=== PATIENT | female | born 1980 | race Caucasian/White ===

== ENCOUNTER 2021-05-03 08:20 | Inpatient (IN) ==
[2021-05-03] MEDS ORDERED: VANCOMYCIN 1,000 MG in 0.9 % SODIUM CHLORIDE 250 ML IV ONE (09:07)
[2021-05-03] MEDS ORDERED: PIPERACILLIN SODIUM/TAZOBACTAM 3.375 GM in DEXTROSE 5% IN WATER 50 ML IV ONE (09:09)
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
[2021-05-03 10:21] LABS: Basophils # (Auto) 0.05 K/mcL (0.00-0.20); Basophils % (Auto) 0.9 % (0.0-2.0); Eosinophils # (Auto) 0.17 K/mcL (0.00-0.70); Hematocrit 38.4 % (36.0-48.0); Hemoglobin 12.6 g/dL (12.0-15.0); Lymphocytes # (Auto) 1.99 K/mcL (1.50-4.80); Lymphocytes % (Auto) 35.5 % (15.0-49.0); Mean Cell Volume 91.9 fL (80.0-100.0); Mean Corpuscular HGB Conc 32.8 g/dL (31.0-36.0); Mean Platelet Volume 10.2 fL (7.4-10.4); Monocytes % (Auto) 7.1 % (1.0-12.0); Neutrophils % (Auto) 53.5 % (38.0-78.0); Platelet Count 170 K/mcL (140-440); RBC 4.18 M/mcL (4.00-5.20); Red Cell Distribution Width 14.3 % (11.5-14.5); WBC 5.6 K/mcL (4.5-11.0)
[2021-05-03 10:23] LABS: ALT/SGPT 105 U/L (<40); AST/SGOT 103 U/L (<32); Albumin 3.6 gm/dL (3.2-5.2); Albumin/Globulin Ratio 0.8 (1.0-2.3); Alkaline Phosphatase 131 U/L (39-117); Bilirubin,Total 0.6 mg/dL (0.1-1.0); Blood Urea Nitrogen 5 mg/dL (6-20); Calcium 9.1 mg/dL (8.6-10.4); Carbon Dioxide 24 mmol/L (22-30); Chloride 96 mmol/L (96-108); Globulin 4.3 gm/dL (2.2-3.7); Glomerular Filtration Rate 113; Glucose 324 mg/dL (70-105)
[2021-05-03] MEDS ORDERED: VANCOMYCIN 1,500 MG in 0.9 % SODIUM CHLORIDE 500 ML IV ONE (11:00)
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
[2021-05-03] MEDS ORDERED: VANCOMYCIN 1,000 MG in 0.9 % SODIUM CHLORIDE 250 ML IV SCH (13:30)
[2021-05-03] MEDS ORDERED: VANCOMYCIN PER PHARMACY IV SCH (13:45)
[2021-05-03] MEDS: 0.9 % SODIUM CHLORIDE 1,000 ML IV SCH (14:03)
[2021-05-03] MEDS: HYDROmorphone 1 MG/ML SYRINGE IV PRN ×2 (14:26→18:20)
[2021-05-03 15:34] LABS: Hemoglobin A1C 10.3 % Hgb (4.0-6.0)
[2021-05-03] MEDS: INSULIN LISPRO 1 UNIT/0.01 ML UNIT SQ SCH ×2 (19:55→23:36)
[2021-05-03] MEDS: LORATADINE 10 MG TABLET PO SCH (21:44)
[2021-05-03] MEDS: HYDROCHLOROTHIAZIDE 12.5 MG CAPSULE PO SCH (21:44)
[2021-05-03] MEDS: OMEPRAZOLE 20 MG CAPSULE PO SCH (21:44)
[2021-05-03] MEDS: VANCOMYCIN 1,500 MG in 0.9 % SODIUM CHLORIDE 500 ML IV SCH (21:59)
[2021-05-04] MEDS: HYDROmorphone 1 MG/ML SYRINGE IV PRN ×4 (00:24→20:44)
[2021-05-04] MEDS: INSULIN LISPRO 1 UNIT/0.01 ML UNIT SQ SCH ×3 (05:31→18:08)
[2021-05-04 06:47] LABS: Basophils # (Auto) 0.05 K/mcL (0.00-0.20); Basophils % (Auto) 0.9 % (0.0-2.0); Eosinophils # (Auto) 0.18 K/mcL (0.00-0.70); Eosinophils % (Auto) 3.3 % (0.0-7.0); Hematocrit 38.1 % (36.0-48.0); Hemoglobin 11.9 g/dL (12.0-15.0); Lymphocytes % (Auto) 27.6 % (15.0-49.0); Mean Cell Volume 93.8 fL (80.0-100.0); Mean Corpuscular HGB Conc 31.2 g/dL (31.0-36.0); Monocytes # (Auto) 0.42 K/mcL (0.10-0.90); Monocytes % (Auto) 7.7 % (1.0-12.0); Neutrophils % (Auto) 60.5 % (38.0-78.0); Platelet Count 155 K/mcL (140-440); RBC 4.06 M/mcL (4.00-5.20); Red Cell Distribution Width 14.6 % (11.5-14.5); WBC 5.4 K/mcL (4.5-11.0)
[2021-05-04] MEDS: VANCOMYCIN 1,500 MG in 0.9 % SODIUM CHLORIDE 500 ML IV SCH ×2 (09:36→20:29)
[2021-05-04] MEDS: 0.9 % SODIUM CHLORIDE 1,000 ML IV SCH ×2 (09:41→15:42)
[2021-05-04] MEDS ORDERED: MAGNESIUM SULFATE 4 GM/100 ML BAG IV ONE (14:40)
[2021-05-04] MEDS ORDERED: metroNIDAZOLE 500 MG/100 ML BAG IV SCH (14:45)
--- NOTE | 2021-05-04 14:59 | General Surgery Progress Note ---
SUBJECTIVE Subjective Patient information: Note initiated : 05/04/21 at 2:53 pm Service Date, if different from initiated Date: [] Patient: Jenn Walsh a 40 y/o F admitted on 05/03/21 for Spider bite, left breast. Chief Complaint: [] Principal diagnosis: Left breast abscess Interval history: Patient has decreased induration of the breast. The area of cellulitis is about the same. There is some drainage which has been cultured. She will be continued on Zosyn and vancomycin until culture results have returned. Her blood sugars are between 245 and 325. She will be started on basal insulin twice daily. Constitutional Vitals: Vital Signs Temp Pulse Resp BP Pulse Ox 97.6 F 94 H 18 124/77 92 05/04/21 11:41 05/04/21 11:41 05/04/21 11:41 05/04/21 11:41 05/04/21 11:41 Period Temp Pulse Resp BP Sys/De Jesus Pulse Ox Last 24 Hr 97 F-98.1 F 88-96 18-18 116-141/68-82 91-94 Intake and Output 05/04/21 05/04/21 05/04/21 05:59 13:59 21:59 Intake Total 1300 1000 Output Total 400 600 Balance 900 400 Intake & Output: Intake & Output 05/04/21 05/04/21 05/04/21 05:59 13:59 21:59 Intake Total 1300 1000 Output Total 400 600 Balance 900 400 Intake: IV 500 500 Vancomycin 1,500 mg In Sodium 500 500 Chloride 0.9% 500 ml @ 333.3 mls/hr IV Q12H [facility] Rx#: [id number] Oral 800 500 Output: Void Amount 400 600 Other: Meal Dinner Percent of Meal Consumed 100% Urine Appearance Cloudy Urine Color Bright Yellow ENT ENT exam: Present mucous membranes moist, normal exam and normal oropharynx Neck Neck exam: Present full ROM and normal inspection; Absent tenderness Respiratory Respiratory exam: Present normal respiratory exam and CTAB; Absent rales, rhonchi and wheezes Cardiovascular Cardiovascular exam: Present normal rate and rhythm, RRR, +S1 and +S2; Absent gallop and JVD GI/Abdominal GI/Abdominal exam: Present normal bowel sounds and soft; Absent distended and mass Extremities Exam Extremities exam: Present full ROM, normal inspection and neurovascular intact; Absent pedal edema Neurological Exam Neurological exam: Present alert, CN II-XII intact, normal gait and oriented X3 Psychiatric Psychiatric exam: Present normal affect; Absent anxious Skin Additional comments: Drainage from the superficial abscess left breast; cellulitis is about the same. A/P Assessment and plan (1) Diabetes mellitus: Status: Acute (2) Nonpuerperal abscess of left breast: Status: Acute Narrative A/P Narrative: Continue antibiotic coverage Add basal insulin twice daily We will check culture and sensitivity in 24 to 48 hours Time Spent With Patient Time: Total time spent is greater than 50% in coordination of care (as documented) at patient's floor/unit and/or counseling patient:
[2021-05-04] MEDS: PIPERACILLIN SODIUM/TAZOBACTAM 3.375 GM in DEXTROSE 5% IN WATER 50 ML IV SCH ×3 (15:56→23:53)
[2021-05-04] MEDS: HYDROCHLOROTHIAZIDE 12.5 MG CAPSULE PO SCH (20:31)
[2021-05-04] MEDS: LORATADINE 10 MG TABLET PO SCH (20:31)
[2021-05-04] MEDS: OMEPRAZOLE 20 MG CAPSULE PO SCH (20:31)
[2021-05-04] MEDS: INSULIN GLARGINE, HUMAN 1 UNIT/0.01 ML SQ SCH (20:32)
[2021-05-05] MEDS: INSULIN LISPRO 1 UNIT/0.01 ML UNIT SQ SCH ×5 (00:12→23:34)
[2021-05-05] MEDS: HYDROmorphone 1 MG/ML SYRINGE IV PRN ×5 (03:26→22:40)
[2021-05-05] MEDS: 0.9 % SODIUM CHLORIDE 1,000 ML IV SCH (06:30)
[2021-05-05] MEDS: PIPERACILLIN SODIUM/TAZOBACTAM 3.375 GM in DEXTROSE 5% IN WATER 50 ML IV SCH ×3 (06:38→17:42)
[2021-05-05 07:22] LABS: Basophils # (Auto) 0.07 K/mcL (0.00-0.20); Basophils % (Auto) 1.3 % (0.0-2.0); Eosinophils # (Auto) 0.19 K/mcL (0.00-0.70); Eosinophils % (Auto) 3.5 % (0.0-7.0); Hematocrit 38.9 % (36.0-48.0); Hemoglobin 11.9 g/dL (12.0-15.0); Lymphocytes # (Auto) 1.87 K/mcL (1.50-4.80); Lymphocytes % (Auto) 34.9 % (15.0-49.0); Mean Cell Volume 95.8 fL (80.0-100.0); Mean Corpuscular HGB Conc 30.6 g/dL (31.0-36.0); Mean Platelet Volume 10.3 fL (7.4-10.4); Monocytes # (Auto) 0.37 K/mcL (0.10-0.90); Monocytes % (Auto) 6.9 % (1.0-12.0); Neutrophils % (Auto) 53.4 % (38.0-78.0); Platelet Count 141 K/mcL (140-440); RBC 4.06 M/mcL (4.00-5.20); Red Cell Distribution Width 14.6 % (11.5-14.5); WBC 5.4 K/mcL (4.5-11.0)
[2021-05-05] MEDS: VANCOMYCIN 1,500 MG in 0.9 % SODIUM CHLORIDE 500 ML IV SCH ×2 (08:29→21:16)
[2021-05-05] MEDS: INSULIN GLARGINE, HUMAN 1 UNIT/0.01 ML SQ SCH ×2 (08:29→21:15)
--- NOTE | 2021-05-05 13:52 | General Surgery Progress Note ---
SUBJECTIVE Subjective Patient information: Note initiated : 05/05/21 at 1:44 pm Service Date, if different from initiated Date: [] Patient: Jenn Walsh a 40 y/o F admitted on 05/03/21 for Spider bite, left breast. Chief Complaint: [] Principal diagnosis: Left breast abscess Interval history: Patient states that her discomfort is improved. The cellulitis and central necrotic area is much improved. White blood count is 5.4 and hemoglobin is 11.9. Cultures are still said to be negative which is not explainable in view of the major amount of cellulitis and purulent drainage that she has. Serum glucose is 217- 267. Will increase Lantus to 20 units twice daily and continue sliding scale coverage. Constitutional Vitals: Vital Signs Temp Pulse Resp BP Pulse Ox 96.2 F L 89 20 126/72 93 05/05/21 08:00 05/05/21 08:00 05/05/21 08:00 05/05/21 08:00 05/05/21 08:00 Period Temp Pulse Resp BP Sys/De Jesus Pulse Ox Last 24 Hr 96.2 F-98.3 F 89-90 16-20 113-145/64-83 91-94 Intake and Output 05/04/21 05/05/21 05/05/21 21:59 05:59 13:59 Intake Total 1380 1575 600 Output Total 675 Balance 705 1575 600 Weight 359 lb Intake & Output: Intake & Output 05/04/21 05/05/21 05/05/21 21:59 05:59 13:59 Intake Total 1380 1575 600 Output Total 675 Balance 705 1575 600 Weight 359 lb Intake: IV 100 550 600 Zosyn 3.375 gm In Dextrose 5% 100 50 100 in Water 50 ml @ 100 mls/hr IV Q6H [facility] Rx#:[id number] Vancomycin 1,500 mg In Sodium 500 500 Chloride 0.9% 500 ml @ 333.3 mls/hr IV Q12H [facility] Rx#: [id number] Oral 1280 1025 Output: Void Amount 675 Other: Meal Dinner Percent of Meal Consumed 100% Feeding Ability Independent Neck Neck exam: Present full ROM and normal inspection; Absent tenderness Respiratory Respiratory exam: Present normal respiratory exam and CTAB; Absent rales, rhonchi and wheezes Cardiovascular Cardiovascular exam: Present normal rate and rhythm, RRR, +S1 and +S2; Absent gallop and JVD GI/Abdominal GI/Abdominal exam: Present normal bowel sounds and soft; Absent distended and mass Extremities Exam Extremities exam: Present full ROM, normal inspection and neurovascular intact; Absent pedal edema Neurological Exam Neurological exam: Present alert, CN II-XII intact, normal gait and oriented X3 Psychiatric Psychiatric exam: Present normal affect; Absent anxious Skin Additional comments: Drainage from the superficial abscess left breast; cellulitis is significantly improved and the central necrotic area is improved.. A/P Assessment and plan (1) Diabetes mellitus: Status: Acute (2) Nonpuerperal abscess of left breast: Status: Acute Narrative A/P Narrative: Continue antibiotic coverage Increase basal insulin twice daily Time Spent With Patient Time: Total time spent is greater than 50% in coordination of care (as documented) at patient's floor/unit and/or counseling patient:
[2021-05-05] MEDS: OMEPRAZOLE 20 MG CAPSULE PO SCH (21:14)
[2021-05-05] MEDS: LORATADINE 10 MG TABLET PO SCH (21:15)
[2021-05-05] MEDS: HYDROCHLOROTHIAZIDE 12.5 MG CAPSULE PO SCH (21:15)
[2021-05-06] MEDS: PIPERACILLIN SODIUM/TAZOBACTAM 3.375 GM in DEXTROSE 5% IN WATER 50 ML IV SCH ×4 (00:59→17:38)
[2021-05-06] MEDS: HYDROmorphone 1 MG/ML SYRINGE IV PRN ×6 (01:40→21:19)
[2021-05-06] MEDS: INSULIN LISPRO 1 UNIT/0.01 ML UNIT SQ SCH ×3 (06:35→17:38)
[2021-05-06 07:23] LABS: Basophils # (Auto) 0.05 K/mcL (0.00-0.20); Basophils % (Auto) 0.9 % (0.0-2.0); Eosinophils # (Auto) 0.22 K/mcL (0.00-0.70); Eosinophils % (Auto) 3.9 % (0.0-7.0); Hematocrit 39.2 % (36.0-48.0); Hemoglobin 12.1 g/dL (12.0-15.0); Lymphocytes # (Auto) 2.01 K/mcL (1.50-4.80); Lymphocytes % (Auto) 35.4 % (15.0-49.0); Mean Cell Volume 95.6 fL (80.0-100.0); Mean Corpuscular HGB Conc 30.9 g/dL (31.0-36.0); Mean Platelet Volume 9.9 fL (7.4-10.4); Monocytes # (Auto) 0.35 K/mcL (0.10-0.90); Monocytes % (Auto) 6.2 % (1.0-12.0); Neutrophils % (Auto) 53.6 % (38.0-78.0); Platelet Count 176 K/mcL (140-440); Red Cell Distribution Width 14.6 % (11.5-14.5); WBC 5.7 K/mcL (4.5-11.0)
[2021-05-06 08:06] LABS: ALT/SGPT 109 U/L (<40); AST/SGOT 127 U/L (<32); Albumin 3.1 gm/dL (3.2-5.2); Albumin/Globulin Ratio 0.7 (1.0-2.3); Alkaline Phosphatase 115 U/L (39-117); Bilirubin,Direct 0.4 mg/dL (<0.3); Bilirubin,Total 0.9 mg/dL (0.1-1.0); Blood Urea Nitrogen 6 mg/dL (6-20); Calcium 8.9 mg/dL (8.6-10.4); Carbon Dioxide 25 mmol/L (22-30); Chloride 99 mmol/L (96-108); Globulin 4.4 gm/dL (2.2-3.7); Glomerular Filtration Rate 119; Glucose 172 mg/dL (70-105); Lactate Dehydrogenase 282 U/L (135-225); Phosphorous 4.4 mg/dL (2.5-4.5); Triglycerides 111 mg/dL (<150); Uric Acid 2.3 mg/dL (2.5-8.0)
[2021-05-06] MEDS: INSULIN GLARGINE, HUMAN 1 UNIT/0.01 ML SQ SCH ×2 (09:21→21:22)
[2021-05-06] MEDS: VANCOMYCIN 1,500 MG in 0.9 % SODIUM CHLORIDE 500 ML IV SCH (11:29)
[2021-05-06] MEDS: VANCOMYCIN 2,000 MG in 0.9 % SODIUM CHLORIDE 500 ML IV SCH ×2 (12:27→21:17)
[2021-05-06] MEDS: 0.9 % SODIUM CHLORIDE 10 ML SYRINGE IV SCH ×2 (13:04→21:18)
--- NOTE | 2021-05-06 18:26 | General Surgery Progress Note ---
SUBJECTIVE Subjective Patient information: Note initiated : 05/06/21 at 6:22 pm Service Date, if different from initiated Date: [] Patient: Jenn Walsh a 40 y/o F admitted on 05/05/21 for Spider bite, left breast. Chief Complaint: [] Principal diagnosis: Left breast abscess Interval history: Patient continues to feel better. She has significant decrease in drainage, erythema, induration of the left breast wound. Her blood sugars are still elevated but are gradually improving. She will receive diabetic teaching probably tomorrow. Constitutional Vitals: Vital Signs Temp Pulse Resp BP Pulse Ox 97.8 F 82 20 132/68 91 05/06/21 16:00 05/06/21 16:00 05/06/21 16:00 05/06/21 16:00 05/06/21 16:00 Period Temp Pulse Resp BP Sys/De Jesus Pulse Ox Last 24 Hr 97.0 F-98.8 F 82-89 20-20 117-132/68-77 90-94 Intake and Output 05/06/21 05/06/21 05/06/21 05:59 13:59 21:59 Intake Total 1150 1020 1100 Output Total 350 Balance 2128 621 8888 Intake & Output: Intake & Output 05/06/21 05/06/21 05/06/21 05:59 13:59 21:59 Intake Total 1150 1020 1100 Output Total 350 Balance 2999 530 1773 Intake: IV 550 100 550 Zosyn 3.375 gm In Dextrose 5% 50 100 50 in Water 50 ml @ 100 mls/hr IV Q6H [facility] Rx#:[id number] Vancomycin 2,000 mg In Sodium 500 500 Chloride 0.9% 500 ml @ 250 mls/ hr IV Q12H [facility] Rx#:[id number] Oral 600 920 550 Output: Void Amount 350 Other: Meal Breakfast Lunch Percent of Meal Consumed 100% 100% Urine Appearance Clear Urine Color Bright Yellow Urine Odor Normal Neck Neck exam: Present full ROM and normal inspection; Absent tenderness Respiratory Respiratory exam: Present normal respiratory exam and CTAB; Absent rales, rhonchi and wheezes Cardiovascular Cardiovascular exam: Present normal rate and rhythm, RRR, +S1 and +S2; Absent gallop and JVD GI/Abdominal GI/Abdominal exam: Present normal bowel sounds and soft; Absent distended and ma ss Extremities Exam Extremities exam: Present full ROM, normal inspection and neurovascular intact; Absent pedal edema Skin Additional comments: Drainage from the superficial abscess left breast; cellulitis is significantly improved and the central necrotic area is improved.. A/P Assessment and plan (1) Diabetes mellitus: Status: Acute (2) Nonpuerperal abscess of left breast: Status: Acute Narrative A/P Narrative: Continue antibiotics Lantus 30 units twice daily Time Spent With Patient Time: Total time spent is greater than 50% in coordination of care (as documented) at patient's floor/unit and/or counseling patient:
[2021-05-06] MEDS: OMEPRAZOLE 20 MG CAPSULE PO SCH (21:17)
[2021-05-06] MEDS: LORATADINE 10 MG TABLET PO SCH (21:17)
[2021-05-06] MEDS: HYDROCHLOROTHIAZIDE 12.5 MG CAPSULE PO SCH (21:17)
[2021-05-07] MEDS: INSULIN LISPRO 1 UNIT/0.01 ML UNIT SQ SCH ×4 (00:02→17:56)
[2021-05-07] MEDS: HYDROmorphone 1 MG/ML SYRINGE IV PRN ×7 (00:14→21:50)
[2021-05-07] MEDS: PIPERACILLIN SODIUM/TAZOBACTAM 3.375 GM in DEXTROSE 5% IN WATER 50 ML IV SCH ×4 (00:26→17:50)
[2021-05-07] MEDS: 0.9 % SODIUM CHLORIDE 10 ML SYRINGE IV SCH ×3 (05:56→22:09)
[2021-05-07 07:06] LABS: Basophils # (Auto) 0.07 K/mcL (0.00-0.20); Basophils % (Auto) 1.1 % (0.0-2.0); Eosinophils # (Auto) 0.21 K/mcL (0.00-0.70); Eosinophils % (Auto) 3.3 % (0.0-7.0); Hematocrit 38.6 % (36.0-48.0); Hemoglobin 12.2 g/dL (12.0-15.0); Lymphocytes # (Auto) 2.06 K/mcL (1.50-4.80); Lymphocytes % (Auto) 32.1 % (15.0-49.0); Mean Cell Volume 94.6 fL (80.0-100.0); Mean Corpuscular HGB Conc 31.6 g/dL (31.0-36.0); Mean Platelet Volume 10.1 fL (7.4-10.4); Monocytes # (Auto) 0.48 K/mcL (0.10-0.90); Monocytes % (Auto) 7.5 % (1.0-12.0); Platelet Count 170 K/mcL (140-440); RBC 4.08 M/mcL (4.00-5.20); Red Cell Distribution Width 14.4 % (11.5-14.5); WBC 6.4 K/mcL (4.5-11.0)
[2021-05-07] MEDS: INSULIN GLARGINE, HUMAN 1 UNIT/0.01 ML SQ SCH ×2 (08:44→21:49)
[2021-05-07] MEDS: VANCOMYCIN 2,000 MG in 0.9 % SODIUM CHLORIDE 500 ML IV SCH ×2 (10:43→21:51)
--- NOTE | 2021-05-07 17:15 | General Surgery Progress Note ---
SUBJECTIVE Subjective Patient information: Note initiated : 05/07/21 at 5:12 pm Service Date, if different from initiated Date: [] Patient: Jenn Walsh 40 y/o F admitted on 05/05/21 for Spider bite, left breast. Chief Complaint: [] Principal diagnosis: Left breast abscess Interval history: Patient continues to feel better. The inflammation and induration is significantly improved. White blood count is 6.4, hemoglobin 12.2, hematocrit 38.6. Serum glucose is 164-194 which is significantly improved. If blood sugars remain down we will make plans for discharge in 24 to 48 hours Constitutional Vitals: Vital Signs Temp Pulse Resp BP Pulse Ox 97.1 F 85 12 127/74 92 05/07/21 12:00 05/07/21 12:00 05/07/21 12:00 05/07/21 12:00 05/07/21 12:00 Period Temp Pulse Resp BP Sys/De Jesus Pulse Ox Last 24 Hr 96.3 F-98.7 F 82-87 12-20 124-142/74-84 91-96 Intake and Output 05/07/21 05/07/21 05/07/21 05:59 13:59 21:59 Intake Total 1850 670 50 Output Total 4 Balance 1850 670 46 Intake & Output: Intake & Output 05/07/21 05/07/21 05/07/21 05:59 13:59 21:59 Intake Total 1850 670 50 Output Total 4 Balance 1850 670 46 Intake: IV 550 550 50 Zosyn 3.375 gm In Dextrose 5% 50 50 50 in Water 50 ml @ 100 mls/hr IV Q6H [facility] Rx#:[id number] Vancomycin 2,000 mg In Sodium 500 500 Chloride 0.9% 500 ml @ 250 mls/ hr IV Q12H [facility] Rx#:[id number] Oral 1300 120 Output: Void Amount 4 Other: Meal Breakfast Percent of Meal Consumed 100% Feeding Ability Independent # Voids 3 Respiratory Respiratory exam: Present normal respiratory exam and CTAB; Absent rales, rh onchi and wheezes Cardiovascular Cardiovascular exam: Present normal rate and rhythm, RRR, +S1 and +S2; Absent gallop and JVD GI/Abdominal GI/Abdominal exam: Present normal bowel sounds and soft; Absent distended and mass Extremities Exam Extremities exam: Present full ROM, normal inspection and neurovascular intact; Absent pedal edema Psychiatric Psychiatric exam: Present normal affect; Absent anxious Skin Additional comments: Drainage from the superficial abscess left breast; cellulitis is significantly improved and the central necrotic area is improved.. A/P Assessment and plan (1) Diabetes mellitus: Status: Acute (2) Nonpuerperal abscess of left breast: Status: Acute Narrative A/P Narrative: Continue antibiotics Lantus 30 units twice daily Time Spent With Patient Time: Total time spent is greater than 50% in coordination of care (as documented) at patient's floor/unit and/or counseling patient:
[2021-05-07] MEDS: HYDROCHLOROTHIAZIDE 12.5 MG CAPSULE PO SCH (21:50)
[2021-05-07] MEDS: LORATADINE 10 MG TABLET PO SCH (21:50)
[2021-05-07] MEDS: OMEPRAZOLE 20 MG CAPSULE PO SCH (21:50)
[2021-05-08] MEDS: PIPERACILLIN SODIUM/TAZOBACTAM 3.375 GM in DEXTROSE 5% IN WATER 50 ML IV SCH ×3 (00:21→11:22)
[2021-05-08] MEDS: HYDROmorphone 1 MG/ML SYRINGE IV PRN ×5 (00:34→14:14)
[2021-05-08] MEDS: INSULIN LISPRO 1 UNIT/0.01 ML UNIT SQ SCH ×3 (00:34→11:23)
[2021-05-08] MEDS: 0.9 % SODIUM CHLORIDE 10 ML SYRINGE IV SCH ×2 (05:01→14:17)
[2021-05-08 07:29] LABS: Basophils # (Auto) 0.06 K/mcL (0.00-0.20); Eosinophils # (Auto) 0.21 K/mcL (0.00-0.70); Eosinophils % (Auto) 3.5 % (0.0-7.0); Hematocrit 39.2 % (36.0-48.0); Hemoglobin 12.2 g/dL (12.0-15.0); Lymphocytes # (Auto) 2.02 K/mcL (1.50-4.80); Lymphocytes % (Auto) 33.8 % (15.0-49.0); Mean Cell Volume 95.6 fL (80.0-100.0); Mean Corpuscular HGB Conc 31.1 g/dL (31.0-36.0); Monocytes # (Auto) 0.41 K/mcL (0.10-0.90); Monocytes % (Auto) 6.9 % (1.0-12.0); Neutrophils % (Auto) 54.8 % (38.0-78.0); Platelet Count 180 K/mcL (140-440); Red Cell Distribution Width 14.5 % (11.5-14.5)
[2021-05-08] MEDS: INSULIN GLARGINE, HUMAN 1 UNIT/0.01 ML SQ SCH (08:40)
[2021-05-08] MEDS: VANCOMYCIN 2,000 MG in 0.9 % SODIUM CHLORIDE 500 ML IV SCH (08:40)
--- NOTE | 2021-05-08 15:17 | Discharge Summary ---
Discharge Provider Provider Patient information: Note initiated : 05/08/21 at 3:15 pm Service Date, if different from initiated Date: [] Patient: Jenn Walsh 40 y/o F admitted on 05/05/21 for Spider bite, left breast. Chief Complaint: [] Date of admission: 05/05/21 14:59 Discharge date: 05/08/21 Primary care physician: Jorge Howard DO Admitting clinician: January Zhou Consults: 05/03/21 09:00 Consult to Physician [CONS] Stat Comment: Consulting Provider: January Zhou Reason For Exam: Physician to Consult Attending physician on discharge: January Zhou Discharging clinician: January Zhou COURSE Hospital Course Hospital course: 40-year-old female who presented to the emergency room on May 11 with a 5-day history of an inflamed mass of the lower outer quadrant of the left breast. She had a central area measuring about 3-1/2 cm with cellulitis extending around this lesion about 8cm. There was no history of inj ury and she does not remember having an insect bite. The inflammatory process appears to be in the superficial fat. She was also noted to have elevated blood sugars in the 350 range with a hemoglobin A1c of 10.3. She was started on Zosyn and vancomycin IV. She was given Accu-Cheks every 6 hours by Humalog but still maintain blood sugars above 300. She was started on Lantus 10 units twice daily and serially increased to 30 units twice daily. Her blood sugars are now consistently in the 150 range. The inflammatory lesion of the breast is significantly healed though there will need to be some residual granulations. There is no evidence of the infection suggestive of abscess. Patient is stable enough for discharge home and will be treated with Augmentin, Diflucan, Lantus insulin and Humalog. She is advised to have follow-up with her primary provider for her diabetes and I will see her in 10 days to make sure that her breast lesion is healed. Discharge diagnosis: Left breast abscess Secondary discharge diagnosis: Diabetes mellitus Reason for admission: Left breast abscess Procedures: None Pertinent studies/significant findings: None Complications: None Time Spent with Patient Time attestation: Total time spent providing and/or coordinating discharge services: Physical Examination Vital Signs Vital signs: Temp Pulse Resp BP Pulse Ox 98.9 F 82 14 120/67 94 05/08/21 11:24 05/08/21 11:24 05/08/21 11:24 05/08/21 11:24 05/08/21 11:24 General physical appearance General physical exam: well developed, well nourished, no distress and obese (Morbidly obese) Eyes Eye exam: PERRL and normal ocular movement ENT ENT exam: normal nares, normal mucosa, no hearing loss and no congestion Head Head exam IM: Present atraumatic, normal inspection and normocephalic Neck Neck exam: no masses, no bruits, trachea midline, no lymphadenopathy and no venous distension Cardiovascular Cardiovascular exam IM: Present normal rate and rhythm, RRR, +S1 and +S2; Absent JVD Respiratory Respiratory exam: normal expansion, normal respiratory effort and clear to auscultation Abdomen Abdomen: Present soft, non tender and bowel sounds; Absent organomegaly Integumentary Integumentary: Present other (The lesion in the left lower outer quadrant is healing nicely with no cellulitis and minimal induration.) Neurologic Neurologic: Present normal coordination and normal sensation Psychiatric Psychiatric: Present oriented to time, oriented to person, oriented to place, speech is normal and memory intact Discharge Plan Patient/Caregiver Discharge Instructions Activity: increase activity as tolerated Diet: Consistent Carbohydrate Prescriptions: New amoxicillin-pot clavulanate [Augmentin] 875-125 mg tablet 1 tab PO BID Qty: 20 RF: 0 insulin lispro [Humalog U-100 Insulin] 100 unit/mL solution 10 unit subcut TID Qty: 10 RF: 5 Lantus U-100 Insulin 100 unit/mL solution 30 unit subcut BID Qty: 20 RF: 5 fluconazole [Diflucan] 150 mg tablet 150 mg PO Q3D Qty: 2 RF: 0 hydrocodone-acetaminophen 10-325 mg tablet 1 tab PO Q6H PRN (Reason: Pain) Qty: 30 RF: 0 No Action hydrochlorothiazide 12.5 mg capsule 12.5 mg PO HS RF: 0 omeprazole 20 mg capsule,delayed release(DR/EC) 20 mg PO HS RF: 0 loratadine 10 mg tablet 10 mg PO HS RF: 0 naproxen 500 mg tablet 500 mg PO PRN PRN (Reason: Pain) RF: 0 Follow Up Plan Follow up with: January Zhou MD [Physician] - 05/19/21 (Please call and schedule a follow up.) Jorge Howard DO [Primary Care Provider] - Patient Disposition: Home, Self-Care Plan of Treatment: Please take insulin as directed until you can see your primary care provider. After that time resume treatment according to their orders. Prognosis: Good Rehab Potential: Good I certify that the patient requires SNF services: No Overall status at discharge: patient is progressing back to baseline Discharge Orders: Discharge Order (Routine); Ordered 05/08/21 Ordered By: January Zhou Pending Pending Pending: Resuscitation Status Full Code Diet Consistent Carbohydrate Diet Start TueMay 03 1320 Diagnostic Test (Pha) (Accu-Chek 1 Each Strip) 1 each FS Q6 [facility]; Protocol Last Admin: 05/08/21 11:23 Dose: 1 each Documented by: Admin: 05/08/21 06:22 Dose: 1 each Documented by: Admin: 05/08/21 00:21 Dose: 1 each Documented by: Admin: 05/07/21 21:49 Dose: 1 each Documented by: Admin: 05/07/21 17:47 Dose: 1 each Documented by: Admin: 05/07/21 12:13 Dose: 1 each Documented by: Admin: 05/07/21 06:00 Dose: 1 each Documented by: Admin: 05/07/21 00:02 Dose: 1 each Documented by: ISELA Dennyigned by: ANDREW Admin: 05/06/21 17:38 Dose: 1 each Documented by: Admin: 05/06/21 11:49 Dose: 1 each Documented by: Admin: 05/06/21 06:22 Dose: 1 each Documented by: Admin: 05/05/21 23:30 Dose: 1 each Documented by: Admin: 05/05/21 17:42 Dose: 1 each Documented by: Admin: 05/05/21 11:42 Dose: 1 each Documented by: Admin: 05/05/21 06:43 Dose: 1 each Documented by: Admin: 05/05/21 00:09 Dose: 1 each Documented by: Admin: 05/04/21 17:58 Dose: 1 each Documented by: Admin: 05/04/21 11:51 Dose: 1 each Documented by: Admin: 05/04/21 05:21 Dose: 1 each Documented by: Admin: 05/03/21 23:25 Dose: 1 each Documented by: Admin: 05/03/21 17:35 Dose: 1 each Documented by: PONCE Hydrochlorothiazide (Hydrochlorothiazide 12.5 Mg Capsule) 12.5 mg PO HS [facility] Last Admin: 05/07/21 21:50 Dose: 12.5 mg Documented by: Admin: 05/06/21 21:17 Dose: 12.5 mg Documented by: ISELA Cosigned by: ANDREW Admin: 05/05/21 21:15 Dose: 12.5 mg Documented by: ISELA Cosigned by: ANDREW Admin: 05/04/21 20:31 Dose: 12.5 mg Documented by: Admin: 05/03/21 21:44 Dose: 12.5 mg Documented by: GUSTAVO Hydromorphone HCl (Hydromorphone 1 Mg/Ml Syringe) 1 mg IV Q2HP PRN; Protocol PRN Reason: Per Pain Protocol Last Admin: 05/08/21 14:14 Dose: 1 mg Documented by: Admin: 05/08/21 11:23 Dose: 1 mg Documented by: Admin: 05/08/21 08:39 Dose: 1 mg Documented by: Admin: 05/08/21 05:00 Dose: 1 mg Documented by: Admin: 05/08/21 00:34 Dose: 1 mg Documented by: Admin: 05/07/21 21:50 Dose: 1 mg Documented by: Admin: 05/07/21 17:57 Dose: 1 mg Documented by: Admin: 05/07/21 15:40 Dose: 1 mg Documented by: Admin: 05/07/21 12:19 Dose: 1 mg Documented by: Admin: 05/07/21 08:44 Dose: 1 mg Documented by: Admin: 05/07/21 04:16 Dose: 1 mg Documented by: Admin: 05/07/21 00:14 Dose: 1 mg Documented by: Admin: 05/06/21 21:19 Dose: 1 mg Documented by: [email or web address] Admin: 05/06/21 17:44 Dose: 1 mg Documented by: Admin: 05/06/21 14:59 Dose: 1 mg Documented by: Admin: 05/06/21 11:38 Dose: 1 mg Documented by: Admin: 05/06/21 05:58 Dose: 1 mg Documented by: [email or web address] Admin: 05/06/21 01:40 Dose: 1 mg Documented by: Admin: 05/05/21 22:40 Dose: 1 mg Documented by: Admin: 05/05/21 17:55 Dose: 1 mg Documented by: Admin: 05/05/21 13:22 Dose: 1 mg Documented by: Admin: 05/05/21 08:29 Dose: 1 mg Documented by: Admin: 05/05/21 03:26 Dose: 1 mg Documented by: Admin: 05/04/21 20:44 Dose: 1 mg Documented by: Admin: 05/04/21 14:10 Dose: 1 mg Documented by: Admin: 05/04/21 06:52 Dose: 1 mg Documented by: Admin: 05/04/21 00:24 Dose: 1 mg Documented by: Admin: 05/03/21 18:20 Dose: 1 mg Documented by: Admin: 05/03/21 14:26 Dose: 1 mg Documented by: PONCE Piperacillin Sod/Tazobactam (Sod 3.375 gm/ Dextrose) 50 mls @ 100 mls/hr IV Q6H [facility]; Protocol Last Infusion: 05/08/21 14:08 Dose: 0 mls/hr Documented by: Admin: 05/08/21 11:22 Dose: 100 mls/hr Documented by: Infusion: 05/08/21 07:05 Dose: 0 mls/hr Documented by: Admin: 05/08/21 06:22 Dose: 100 mls/hr Documented by: Infusion: 05/08/21 01:00 Dose: 0 mls/hr Documented by: Admin: 05/08/21 00:21 Dose: 100 mls/hr Documented by: Infusion: 05/07/21 18:30 Dose: 0 mls/hr Documented by: Admin: 05/07/21 17:50 Dose: 100 mls/hr Documented by: Infusion: 05/07/21 14:00 Dose: 0 mls/hr Documented by: Admin: 05/07/21 13:17 Dose: 100 mls/hr Documented by: Infusion: 05/07/21 09:00 Dose: 0 mls/hr Documented by: Admin: 05/07/21 05:56 Dose: 100 mls/hr Documented by: Infusion: 05/07/21 00:56 Dose: 100 mls/hr Documented by: Admin: 05/07/21 00:26 Dose: 100 mls/hr Documented by: Infusion: 05/06/21 18:10 Dose: 0 mls/hr Documented by: Admin: 05/06/21 17:38 Dose: 100 mls/hr Documented by: Infusion: 05/06/21 12:11 Dose: 0 mls/hr Documented by: Admin: 05/06/21 11:41 Dose: 100 mls/hr Documented by: Infusion: 05/06/21 06:30 Dose: 0 mls/hr Documented by: Admin: 05/06/21 05:59 Dose: 100 mls/hr Documented by: Infusion: 05/06/21 01:29 Dose: 100 mls/hr Documented by: Admin: 05/06/21 00:59 Dose: 100 mls/hr Documented by: Infusion: 05/05/21 18:27 Dose: 0 mls/hr Documented by: Admin: 05/05/21 17:42 Dose: 100 mls/hr Documented by: Infusion: 05/05/21 12:33 Dose: 0 mls/hr Documented by: Admin: 05/05/21 11:42 Dose: 100 mls/hr Documented by: Infusion: 05/05/21 08:40 Dose: 0 mls/hr Documented by: Admin: 05/05/21 06:38 Dose: 100 mls/hr Documented by: Infusion: 05/05/21 00:23 Dose: 100 mls/hr Documented by: Admin: 05/04/21 23:53 Dose: 100 mls/hr Documented by: Infusion: 05/04/21 19:34 Dose: 100 mls/hr Documented by: Admin: 05/04/21 19:04 Dose: 100 mls/hr Documented by: Infusion: 05/04/21 18:39 Dose: 0 mls/hr Documented by: Admin: 05/04/21 15:56 Dose: 100 mls/hr Documented by: PONCE Vancomycin HCl 2,000 mg/ (Sodium Chloride) 500 mls @ 250 mls/hr IV Q12H [facility] Last Infusion: 05/08/21 14:08 Dose: 0 mls/hr Documented by: Admin: 05/08/21 08:40 Dose: 250 mls/hr Documented by: Infusion: 05/08/21 00:25 Dose: 0 mls/hr Documented by: Admin: 05/07/21 21:51 Dose: 250 mls/hr Documented by: Infusion: 05/07/21 13:19 Dose: 0 mls/hr Documented by: Admin: 05/07/21 10:43 Dose: 250 mls/hr Documented by: Infusion: 05/07/21 00:26 Dose: 0 mls/hr Documented by: Admin: 05/06/21 21:17 Dose: 333.3 mls/hr Documented by: ISELA Cosigned by: ANDREW Infusion: 05/06/21 14:45 Dose: 0 mls/hr Documented by: Admin: 05/06/21 12:27 Dose: 250 mls/hr Documented by: LIAT Insulin Glargine (Insulin Glargine, Human 1 Unit/0.01 Ml) 30 unit SQ BID [facility] Last Admin: 05/08/21 08:40 Dose: 30 unit Documented by: Admin: 05/07/21 21:49 Dose: 30 unit Documented by: Admin: 05/07/21 08:44 Dose: 30 unit Documented by: Admin: 05/06/21 21:22 Dose: 30 unit Documented by: ISELA Cosigned by: ANDREW Insulin Human Lispro (Insulin Lispro 1 Unit/0.01 Ml Unit) 0 unit SQ Q6 C[facility]STIAN; Protocol Last Admin: 05/08/21 11:23 Dose: 4 unit Documented by: Admin: 05/08/21 06:31 Dose: 2 unit Documented by: Admin: 05/08/21 00:34 Dose: 4 unit Documented by: Admin: 05/07/21 17:56 Dose: 6 unit Documented by: Admin: 05/07/21 12:18 Dose: 4 unit Documented by: Admin: 05/07/21 06:08 Dose: 4 unit Documented by: Admin: 05/07/21 00:02 Dose: 2 unit Documented by: ISELA Cosigned by: ANDREW Admin: 05/06/21 17:38 Dose: 6 unit Documented by: Admin: 05/06/21 11:50 Dose: 6 unit Documented by: Admin: 05/06/21 06:35 Dose: 2 unit Documented by: Admin: 05/05/21 23:34 Dose: 4 unit Documented by: ISELA Cosigned by: ANDREW Admin: 05/05/21 17:55 Dose: 8 unit Documented by: Admin: 05/05/21 12:00 Dose: 8 unit Documented by: Admin: 05/05/21 06:48 Dose: 6 unit Documented by: Admin: 05/05/21 00:12 Dose: 6 unit Documented by: Admin: 05/04/21 18:08 Dose: 10 unit Documented by: Admin: 05/04/21 11:58 Dose: 10 unit Documented by: Admin: 05/04/21 05:31 Dose: 8 unit Documented by: Admin: 05/03/21 23:36 Dose: 10 unit Documented by: Admin: 05/03/21 19:55 Dose: 10 unit Documented by: GUSTAVO Loratadine (Loratadine 10 Mg Tablet) 10 mg PO [facility] Admin: 05/07/21 21:50 Dose: 10 mg Documented by: Admin: 05/06/21 21:17 Dose: 10 mg Documented by: ISELA Cosigned by: ANDREW Admin: 05/05/21 21:15 Dose: 10 mg Documented by: ISELA Cosigned by: ANDREW Admin: 05/04/21 20:31 Dose: 10 mg Documented by: Admin: 05/03/21 21:44 Dose: 10 mg Documented by: GUSTAVO Omeprazole (Omeprazole 20 Mg Capsule) 20 mg PO HS [facility] Last Admin: 05/07/21 21:50 Dose: 20 mg Documented by: Admin: 05/06/21 21:17 Dose: 20 mg Documented by: ISELA Cosigned by: ANDREW Admin: 05/05/21 21:14 Dose: 20 mg Documented by: ISELA Cosigned by: ANDREW Admin: 05/04/21 20:31 Dose: 20 mg Documented by: Admin: 05/03/21 21:44 Dose: 20 mg Documented by: GUSTAVO Sodium Chloride (0.9 % Sodium Chloride 10 Ml Syringe) 10 ml IV Q8 [facility] Last Admin: 05/08/21 14:17 Dose: 10 ml Documented by: Admin: 05/08/21 05:01 Dose: 10 ml Documented by: Admin: 05/07/21 22:09 Dose: 10 ml Documented by: Admin: 05/07/21 13:16 Dose: 10 ml Documented by: Admin: 05/07/21 05:56 Dose: 10 ml Documented by: Admin: 05/06/21 21:18 Dose: 10 ml Documented by: ISELA Cosigned by: ANDREW Admin: 05/06/21 13:04 Dose: Not Given Documented by: [email or web address] Shift Summary 05/08/21 02:18 Shift Summary by Justina Cooper Diagnosis: Medical status for breast abscess Brief history of present illness: Was treated at [facility] with Bactrim for s ore area to L breast. Pain/appearance of sore area became worse and was admitted for ABO therapy and observation. Made inpatient status after new diagnosis of diabetes and possible need for debridement of wound. Blood cultures pending. Orientation: A&Ox4 Oxygen/Airway needs: RA Ambulation status: Up independently in room. Voiding: Bathroom. IV access: 22g IV to L wrist, SL. Tubes/drains: Pain: 1mg IV Dilaudid given twice, last approx. 0030. Patient describes pain as "sharp". Wounds: Left breast wound covered with Mepilex, C/D/I. Discharge plans: Home when ready. CM/Cardiac Rhythm (if applicable): Alarms (if applicable): Drips (if applicable): Ventilation (if applicable): Additional Comments: Blood glucose 201 at HS, 30 units Lantus given. Blood glucose 191 at 0000, 4 units sliding scale Humalog given. in room with patient. Initialized on 05/08/21 02:18 - END OF NOTE
== END 2021-05-08 17:15 | disposition home or self-care (01) | DRG 600 ==
LOC: MEDSUR 08:20 → ED 08:20 → MEDSUR 10:52
PROVIDERS: ADMIT Family Medicine Adult Medicine; ATTEND Family Medicine Adult Medicine